=== PATIENT | male | born 1995 | race Caucasian/White ===

== ENCOUNTER 2020-12-04 11:29 | Emergency (ER) | payer BC, SELFPAY ==
[2020-12-04 11:30] VITALS: BP 145/89; PULSE 86; RESP 16; TEMP 37; O2SAT 98; BMI 25.0
--- NOTE | 2020-12-04 12:09 | HMH.EDGENADL ---
ED Disposition Clinical Impression: Cervical radiculopathy, Cervical disc disease Disposition: Home, Self-Care Condition on Discharge: Fair Instructions: DI for Cervical Radiculopathy, DI for Herniated Disc Additional Instructions: Prednisone as prescribed. Percocet for pain. You are being provided with a list of physicians available for follow-up of your condition. Please call a physician on this list to arrange a follow-up appointment as soon as possible. Additional instructions for NECK PAIN: See your physician as soon as possible for further evaluation. Return immediately if neck pain becomes intolerable, or if fever, numbness or weakness of your arms or legs, loss of control of your bowels or bladder. Additional instructions for CONTROLLED SUBSTANCES: You have been prescribed a medication that is a controlled substance. Controlled substances include pain medications known as opiates and sedative nerve medications known as benzodiazepines. Tramadol, fioricet, and gabapentin are also controlled substances. Some common opiates include: Codeine (such as Tylenol #3) Hydrocodone (Vicodin, Lortab, Lorcet, Pendergrass) Oxycodone (Percocet, Percodan, Oxycodone, Oxy IR) Some common benzodiazepines include: Diazepam (Valium) Lorazepam (Ativan) Alprazolam (Xanax) Clonazepam (Klonopin) Oxazepam (Serax) All of these controlled substances are highly addictive and frequently abused. Misuse can and frequently does lead to addiction as well as overdose and . Medication should be stored in a locked cabinet or other secure storage unit. Do not store the medication in a motor vehicle. Short term supplies, 3 days or less, are prescribed because of the highly addictive nature of the medication. Any of the controlled substance medication NOT taken should be disposed of properly and NOT SAVED. The recommended method of disposing of unused medications is: Place the medicines in a sealable plastic bag. If the medicine is a solid, crush it or add water to dissolve it. Add something undesirable (cat litter, coffee grounds, etc.) Dispose of sealed bag in household trash Do not flush or pour unused medicines down a sink or drain. Controlled substances should not be shared, given away or sold. Because of the addictive nature and frequent abuse, these medications are sometimes stolen. These medications should be kept in a safe place where they cannot be stolen. Do not keep them in your car or purse. Lost or stolen prescriptions for controlled substances WILL NOT BE REFILLED in this emergency department, regardless of whether a police report was filed. Prescriptions: Oxycodone HCl/Acetaminophen [Percocet 5/325mg tablet] 1 tab PO Q6HP PRN #15 tab PRN Reason: Moderate To Severe Pain Transmission Status: Received by [facility] #[id number] predniSONE [Prednisone 20mg Tab] 20 mg PO BID #10 tab Transmission Status: Pending to [facility] #[id number] Referrals: PCP,No [Primary Care Provider] - - Critical Care Critical Care Time: No Attestation: On , the high probability of a clinically significant, sudden or life threatening deterioration of the following system(s) required my full and direct attention, intervention and personal management. The time I documented below is in addition to time spent performing reported procedures but includes the following listed in this critical care notation. Medical Decision Making - Jared Inquiry Pt receiving controlled substance: Yes Jared was queried for this patient: Yes Risks and benefits of using a controlled substance: were discussed with pt by me Vital Signs: 12/04/20 11:30 12/04/20 13:00 Temperature 98.6 F Temperature Source Oral Pulse Rate [Radial] 86 Respiratory Rate 16 Blood Pressure [Right Arm] 145/89 H 126/65 Blood Pressure Mean [Right Arm] 107 85 Blood Pressure Source [Right Arm] Manual Cuff/ Palpation Automatic Cuff Blood Pressu
--- NOTE | 2020-12-04 12:18 | CT_ITS ---
PROCEDURE: CT CERVICAL SPINE W CON CLINICAL INDICATION: neck pain into right shoulder COMPARISON: CT CSWO CT CERVICAL SPINE W/O CONT from 05/26/2012 TECHNIQUE: Axial images obtained with sagittal and coronal reformats. All CT scans at the facility use one or more dose reduction, viz: automated exposure control, ma/kV adjustment per patient size (including targeted exams where dose is matched to indication, i.e. head), or iterative reconstruction technique. Axial spiral CT scanning performed of the cervical spine beginning at the base of the skull and continuing to the upper T-spine. 3-D multiplanar reconstruction with 3-D manipulation of volumetric data set in image rendering was completed by the radiologist and/or technologist with the supervision of the radiologist on independent workstation. FINDINGS: There is straightening of the cervical lordosis. This is not significantly changed from an older study of 05/26/2012. No fracture or dislocation. No lytic or blastic change. No enhancing paraspinal mass. There is slight decrease in the disc space at C5-C6. May be a right paracentral disc protrusion at C5-C6. Nonemergent MRI may confirm. Lung apices are clear. IMPRESSION: Minor decrease in the disc space at C5-C6 which may represent mild degenerative disc disease. Questionable right paracentral/foraminal disc protrusion at C5-C6 which may be confirmed with nonemergent MRI Dictated by: Bong Erazo MD 12/04/2020 13:13 Bong Erazo MD in [place] 12/04/2020 13:13
[2020-12-04 12:53] LABS: Basophils % 0.3 % (0.1-2.0); Eosinophils % 0.2 % (0.1-12.0); Hematocrit 43.1 % (42.0-52.0); Hemoglobin 14.3 g/dL (14.1-18.0); Lymphocytes # 1.1 K/mm3 (0.7-4.5); Lymphocytes % 16.8 % (10-50); Mean Corpuscular HGB Conc 33.1 g/dL (31.8-35.4); Mean Corpuscular Hemoglobin 29.9 pg (27.0-31.2); Mean Corpuscular Volume 90.2 fl (80-94); Mean Platelet Volume 8.1 fl (7.4-10.4); Monocytes # 0.3 K/mm3 (0.1-1.0); Monocytes % 4.3 % (1.7-9.3); Neutrophils # 4.9 K/mm3 (1.8-7.8); Neutrophils % 78.3 % (37.0-80.0); Platelet Count 314 K/mm3 (142-424); Red Blood Count 4.78 M/mm3 (4.60-6.20); Red Cell Distribution Width 12.5 % (11.5-17.5); White Blood Count 6.2 K/mm3 (4.8-10.8)
[2020-12-04 13:00] VITALS: BP 126/65; O2SAT 100
[2020-12-04 13:02] LABS: C-Reactive Protein 2.8 mg/L (0-4)
[2020-12-04 13:14] LABS: Erythrocyte Sedimentation Rate 13 mm/hr (0-15)
[2020-12-04 13:54] VITALS: BP 138/66; PULSE 92; RESP 18; O2SAT 100
[2020-12-04 14:10] VITALS: BP 138/66; PULSE 99; RESP 18; TEMP 37; O2SAT 100
[2020-12-04 14:12] VITALS: BP 123/65; PULSE 78; RESP 16; TEMP 36.6; O2SAT 98
== END 2020-12-04 14:14 | disposition home or self-care (01) ==
PROVIDERS: Emergency Provider Emergency Medicine
DX: M50.90 Cervical disc disorder, unspecified, unspecified cervical region (principal); M54.12 Radiculopathy, cervical region; F17.210 Nicotine dependence, cigarettes, uncomplicated
CPT/HCPCS: 72126; 85025; 85651; 86140; 96374; 96375; 99283; J2405; Q9967

== ENCOUNTER 2021-02-13 09:50 | Emergency (ER) | payer BC, SELFPAY ==
[2021-02-13 09:52] VITALS: BP 138/90; PULSE 91; RESP 16; TEMP 36.6; O2SAT 98; BMI 24.3
--- NOTE | 2021-02-13 09:56 | HMH.EDGENADL ---
ED Disposition Clinical Impression: Tenosynovitis Disposition: Xfer Short-Term Hosp Condition on Discharge: Good Referrals: Provider,Referral, [Primary Care Provider] - Time of Disposition: 11:27 - Critical Care Critical Care Time: No Attestation: On , the high probability of a clinically significant, sudden or life threatening deterioration of the following system(s) required my full and direct attention, intervention and personal management. The time I documented below is in addition to time spent performing reported procedures but includes the following listed in this critical care notation. Medical Decision Making - Medical Records Medical records reviewed: Yes: I reviewed the patient's medical records. - Jared Inquiry Pt receiving controlled substance: No Vital Signs: 02/13/21 09:52 Temperature 98 F Temperature Source Oral Pulse Rate [Radial] 91 H Respiratory Rate 16 Blood Pressure [Right Arm] 138/90 Blood Pressure Mean [Right Arm] 106 Blood Pressure Position [Right Arm] Sitting 02 Sat by Pulse Oximetry 98 Oxygen Delivery Method Room Air - Lab Data Lab Results 02/13/21 10:25: WBC 8.8, RBC 4.64, Hgb 14.1, Hct 40.5 L, MCV 87.1, MCH 30.3, MCHC 34.8, RDW 12.1, Plt Count 275, MPV 7.7, Neut % (Auto) 65.9, Lymph % (Auto) 23.5, [place] % (Auto) 6.1, Eos % (Auto) 3.7, Baso % (Auto) 0.7, Neut # (Auto) 5.8, Lymph # (Auto) 2.1, [place] # (Auto) 0.5, Eos # (Auto) 0.3, Baso # (Auto) 0.1 02/13/21 10:35: Sodium 138, Potassium 3.6, Chloride 100, Carbon Dioxide 28, Anion Gap 13.6, BUN 12, Creatinine 0.70, Estimated Creat Clear 199, Estimated GFR 140, Est GFR ( Amer) 169, Glucose 95, Calcium 9.2 02/13/21 10:35: Lactate 0.6 L Result diagrams: 02/13/21 10:25 02/13/21 10:35 Orders (Tests/Meds): ED MEDICATIONS Generic Name Dose Route Start Last Admin Trade Name Freq PRN Reason Stop Dose Admin Vancomycin HCl 1,750 mg/ 250 mls @ 125 mls/hr 02/13/21 10:15 02/13/21 11:10 Sodium Chloride IV 02/13/21 12:14 125 mls/hr ONCE ONE Administration Discontinued Medications Generic Name Dose Route Start Last Admin Trade Name Noa PRN Reason Stop Dose Admin Cefepime HCl 2 gm/ Sodium 100 mls @ 200 mls/hr 02/13/21 10:03 02/13/21 10:34 Chloride IV 02/13/21 10:32 Not Given ONCE ONE Protocol Ceftriaxone Sodium 2 gm/ 100 mls @ 200 mls/hr 02/13/21 10:06 02/13/21 10:10 Sodium Chloride IV 02/13/21 10:35 200 mls/hr ONCE ONE Administration Protocol Ketorolac Tromethamine 15 mg 02/13/21 10:06 02/13/21 10:11 Ketorolac 30mg/Ml Vial IV 02/13/21 10:07 15 mg ONCE ONE Administration ORDERS Category Date Time Status Hand XR left 2 views [XR hand LT 2V] Stat Exams 02/13/21 10:58 Taken Blood Culture Stat Micro 02/13/21 10:28 Ordered Medical Decision Narrative: 25yo M evaluated for pain and swelling about his left hand, centered over his left middle finger. Primary concern at this time is tenosynovitis. Patient is started on Rocephin and vancomycin. Case discussed with orthopedics at this facility, but they are uncomfortable keeping a hand case. Recommended transfer. [facility] has been contacted and agrees to see the patient to the emergency department. Dr. Fregoso is excepting. Patient CBC and CMP are unremarkable. Lactic acid is well within normal limits. Patient is adamant that he must go by POV. His mother is in route to pick him up. He is received his Rocephin and his vancomycin is currently running. Will administer medications as long as possible until his mother is here and will then transfer the patient. General Adult HPI - General Stated complaint: left hand and arm swollen Time Seen by Provider: 02/13/21 09:56 Mode of Arrival: Ambulatory - History of Present Illness HPI narrative: 25yo RHD M without significant past medical history reports to the emergency department secondary to pain and swelling in his left hand. Patient reports
--- NOTE | 2021-02-13 10:27 | PC.NURSE ---
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
[2021-02-13 10:39] LABS: Basophils # 0.1 K/mm3 (0-0.2); Basophils % 0.7 % (0.1-2.0); Eosinophils # 0.3 K/mm3 (0.0-0.4); Eosinophils % 3.7 % (0.1-12.0); Hematocrit 40.5 % (42.0-52.0); Hemoglobin 14.1 g/dL (14.1-18.0); Lymphocytes # 2.1 K/mm3 (0.7-4.5); Lymphocytes % 23.5 % (10-50); Mean Corpuscular HGB Conc 34.8 g/dL (31.8-35.4); Mean Corpuscular Hemoglobin 30.3 pg (27.0-31.2); Mean Corpuscular Volume 87.1 fl (80-94); Mean Platelet Volume 7.7 fl (7.4-10.4); Monocytes # 0.5 K/mm3 (0.1-1.0); Monocytes % 6.1 % (1.7-9.3); Neutrophils # 5.8 K/mm3 (1.8-7.8); Neutrophils % 65.9 % (37.0-80.0); Platelet Count 275 K/mm3 (142-424); Red Blood Count 4.64 M/mm3 (4.60-6.20); Red Cell Distribution Width 12.1 % (11.5-17.5); White Blood Count 8.8 K/mm3 (4.8-10.8)
[2021-02-13 10:45] LABS: Chloride 100 mmol/L (98-107); Sodium 138 mmol/L (136-145)
[2021-02-13 10:46] LABS: Potassium 3.6 mmoL/L (3.5-5.1)
[2021-02-13 10:48] LABS: Blood Urea Nitrogen 12 mg/dl (9-20); Creatinine Clearance Estimated 199 mL/min (50-200); Estimated Glomerular Filt Rate 140 ml/min (>60); GFR (African American) 169 ML/MIN (>60); Lactic Acid 0.6 mmol/L (0.7-2.1)
[2021-02-13 10:49] LABS: Anion Gap 13.6 mEq/L (5-15); Calcium 9.2 mg/dl (8.4-10.2); Carbon Dioxide 28 mmol/L (22.0-30.0); Glucose 95 mg/dl (74-100)
--- NOTE | 2021-02-13 10:57 | PC.NURSE ---
Dr Harden spoke with Dr Tejeda.
--- NOTE | 2021-02-13 10:58 | XR_ITS ---
PROCEDURE INFORMATION: Exam: XR Left Hand Exam date and time: 02/13/2021 10:58 AM Age: 25 years old Clinical indication: Pain; Hand; Left; Additional info: Swelling middle finger TECHNIQUE: Imaging protocol: XR Left hand. Views: 1 or 2 views. COMPARISON: CR HANDL3 HAND-LT-3 VIEWS 09/06/2016 10:26 AM FINDINGS: Bones/joints: Old fracture deformity of the 5th metacarpal. 3rd finger soft tissue swelling with extension into the dorsal hand. No radiopaque foreign bodies. No acute fracture or traumatic malalignment. IMPRESSION: No acute osseous abnormality. Third finger and dorsal hand soft tissue swelling.
--- NOTE | 2021-02-13 11:07 | PC.NURSE ---
placed call to [facility] for transfer
--- NOTE | 2021-02-13 11:16 | PC.NURSE ---
Dr Harden spoke with [facility] for transfer of PT.
[2021-02-13 11:30] VITALS: BP 152/80; PULSE 82; RESP 18; O2SAT 98
[2021-02-13 12:00] VITALS: BP 146/93; PULSE 76; RESP 18; O2SAT 98
--- NOTE | 2021-02-13 12:00 | PC.NURSE ---
pt resting c/o pain lt arm
--- NOTE | 2021-02-13 13:00 | PC.NURSE ---
mother at bedside. waiting antibiotic to infuse
--- NOTE | 2021-02-13 13:45 | PC.NURSE ---
report called to [facility]
[2021-02-13 13:48] VITALS: BP 142/72; PULSE 78; RESP 16; TEMP 36.6; O2SAT 97
== END 2021-02-13 13:52 | disposition short-term general hospital (02) ==
PROVIDERS: Emergency Provider Family Medicine
DX: M65.142 Other infective (teno)synovitis, left hand (principal); F17.210 Nicotine dependence, cigarettes, uncomplicated
CPT/HCPCS: 73120; 80048; 83605; 85025; 96365; 96366; 96375; 99283; J3370

== ENCOUNTER 2021-03-27 07:47 | Emergency (ER) | payer BC, SELFPAY ==
[2021-03-27 07:48] VITALS: BP 133/71; PULSE 110; RESP 16; O2SAT 98; BMI 25.0
--- NOTE | 2021-03-27 07:55 | CT_ITS ---
PROCEDURE INFORMATION: Exam: CT Head Without Contrast Exam date and time: 03/27/2021 7:55 AM Age: 25 years old Clinical indication: Altered mental status/memory loss; Additional info: AMS TECHNIQUE: Imaging protocol: Computed tomography of the head without contrast. Radiation optimization: All CT scans at this facility use at least one of these dose optimization techniques: automated exposure control; mA and/or kV adjustment per patient size (includes targeted exams where dose is matched to clinical indication); or iterative reconstruction. COMPARISON: CT CERVICAL SPINE W CON 12/04/2020 12:45 PM FINDINGS: Brain: Normal. No hemorrhage. Age appropriate white matter. No mass effect. No focal mass. The fields-white matter junction is intact. Cerebral ventricles: No ventriculomegaly. Paranasal sinuses: Visualized sinuses are unremarkable. No fluid levels. Mastoid air cells: Visualized mastoid air cells are well aerated. Bones/joints: Unremarkable. No acute fracture. Soft tissues: Unremarkable. IMPRESSION: Normal examination of brain. There is no acute intracranial abnormality. There is no structural abnormality.
[2021-03-27 08:00] VITALS: BP 133/82; PULSE 71; RESP 10; O2SAT 96
[2021-03-27 08:05] LABS: Basophils # 0.2 K/mm3 (0-0.2); Basophils % 1.6 % (0.1-2.0); Eosinophils # 0.4 K/mm3 (0.0-0.4); Eosinophils % 3.6 % (0.1-12.0); Hematocrit 46.4 % (42.0-52.0); Hemoglobin 15.4 g/dL (14.1-18.0); Lymphocytes # 2.7 K/mm3 (0.7-4.5); Lymphocytes % 25.7 % (10-50); Mean Corpuscular HGB Conc 33.2 g/dL (31.8-35.4); Mean Corpuscular Hemoglobin 29.7 pg (27.0-31.2); Mean Corpuscular Volume 89.4 fl (80-94); Mean Platelet Volume 7.3 fl (7.4-10.4); Monocytes # 0.6 K/mm3 (0.1-1.0); Monocytes % 5.5 % (1.7-9.3); Neutrophils # 6.7 K/mm3 (1.8-7.8); Neutrophils % 63.6 % (37.0-80.0); Platelet Count 303 K/mm3 (142-424); Red Blood Count 5.18 M/mm3 (4.60-6.20); Red Cell Distribution Width 12.7 % (11.5-17.5); White Blood Count 10.5 K/mm3 (4.8-10.8)
[2021-03-27 08:13] LABS: Alanine Aminotransferase 33 U/L (12-78); Albumin Level 4.8 g/dl (3.5-5.0); Albumin/Globulin Ratio 1.6 (1.1-1.8); Alkaline Phosphatase 86 U/L (38-126); Anion Gap 11.9 mEq/L (5-15); Aspartate Amino Transferase 40 U/L (17-59); Bilirubin,Total 0.6 mg/dl (0.2-1.3); Blood Urea Nitrogen 14 mg/dl (9-20); Calcium 9.3 mg/dl (8.4-10.2); Carbon Dioxide 34 mmol/L (22.0-30.0); Chloride 99 mmol/L (98-107); Creatine Kinase 384 U/L (55-170); Creatinine Clearance Estimated 152 mL/min (50-200); Estimated Glomerular Filt Rate 105 ml/min (>60); Ethyl Alcohol < 10 mg/dl (0-10); GFR (African American) 127 ML/MIN (>60); Glucose 101 mg/dl (74-100); Potassium 3.9 mmoL/L (3.5-5.1); Sodium 141 mmol/L (136-145); Total Protein,Serum 7.8 g/dl (6.3-8.2)
[2021-03-27 09:00] VITALS: BP 120/75; PULSE 83; O2SAT 96
--- NOTE | 2021-03-27 09:01 | ECG_ITS ---
APPROVED REPORT Exam: Resting ECG HR:75 bpm ECG Measurements Heart Rate 75 AXES TN 126 P 13 QRSd 88 QRS 76 QT 402 T 52 QTc 448 Conclusion Normal sinus rhythm Normal ECG Electronically signed by : Myron Masters, 03/28/2021 08:35:50
[2021-03-27 09:52] LABS: Microscopic, Urine URINE MICROSCOPIC (MICROSCOPIC)
[2021-03-27 09:54] LABS: Appearance,Urine CLEAR (Clear); Bilirubin,Urine Negative (Negative); Blood, Urine Negative (Negative); Color,Urine YELLOW (Yellow); Glucose,Urine (UA) Negative (Negative); Ketones,Urine Negative (Negative); Leukocyte Esterase,Urine Negative (Negative); Nitrate,Urine Negative (Negative); Protein,Urine Negative (Negative); Urobilinogen,Urine 0.2 EU/dl (0.2)
[2021-03-27 10:05] LABS: Benzodiazepines Screen,Urine Positive ng/ml (<200)
[2021-03-27 10:06] LABS: Amphetamine/Metha Screen,Urine Positive ng/ml (<1000)
[2021-03-27 10:07] LABS: Barbiturates Screen,Urine Negative ng/ml (<200); Cannabinoid Screen,Urine Positive ng/ml (<50)
[2021-03-27 10:08] LABS: Cocaine Screen,Urine Negative ng/ml (<300); Methadone Screen,Urine Negative ng/ml (<300)
[2021-03-27 10:09] LABS: Opiate Screen,Urine Positive ng/ml (<300)
[2021-03-27 10:10] LABS: Phencyclidine Screen,Urine Negative ng/ml (<25)
--- NOTE | 2021-03-27 10:13 | HMH.EDGENADL ---
ED Disposition Clinical Impression: Drug abuse Disposition: Home, Self-Care Condition on Discharge: Good Additional Instructions: Sent to the emergency room for any new symptoms. Follow-up with primary care physician. consult with your primary care physician regarding drug abuse Referrals: Provider,Referral, [Primary Care Provider] - - Critical Care Critical Care Time: No Attestation: On 03/27/21, the high probability of a clinically significant, sudden or life threatening deterioration of the following system(s) required my full and direct attention, intervention and personal management. The time I documented below is in addition to time spent performing reported procedures but includes the following listed in this critical care notation. Medical Decision Making - Medical Records MR Deyanira: She was observed in the emergency room with no signs of distress. Drug screen is positive for benzo. He smokes marijuana. His vital signs are stable and his neurological exam is normal. - Jared Inquiry Pt receiving controlled substance: No Jared was queried for this patient: No Vital Signs: 03/27/21 07:48 Pulse Rate [Radial] 110 H Respiratory Rate 16 Blood Pressure [Right Radial Artery] 133/71 Blood Pressure Mean [Right Radial Artery] 91 Blood Pressure Position [Right Radial Artery] Sitting 02 Sat by Pulse Oximetry 98 Oxygen Delivery Method Room Air - Lab Data Lab Results 03/27/21 07:51: WBC 10.5, RBC 5.18, Hgb 15.4, Hct 46.4, MCV 89.4, MCH 29.7, MCHC 33.2, RDW 12.7, Plt Count 303, MPV 7.3 L, Neut % (Auto) 63.6, Lymph % (Auto) 25.7, [place] % (Auto) 5.5, Eos % (Auto) 3.6, Baso % (Auto) 1.6, Neut # (Auto) 6.7, Lymph # (Auto) 2.7, [place] # (Auto) 0.6, Eos # (Auto) 0.4, Baso # (Auto) 0.2 03/27/21 07:51: Sodium 141, Potassium 3.9, Chloride 99, Carbon Dioxide 34 H, Anion Gap 11.9, BUN 14, Creatinine 0.90, Estimated Creat Clear 152, Estimated GFR 105, Est GFR ( Amer) 127, Glucose 101 H, Calcium 9.3, Total Bilirubin 0.6, AST 40, ALT 33, Alkaline Phosphatase 86, Total Creatine Kinase 384 H, Total Protein 7.8, Albumin 4.8, Globulin 3.0, Albumin/Globulin Ratio 1.6 03/27/21 07:51: Plasma/Serum Alcohol < 10 03/27/21 09:45: Urine Color Yellow, Urine Appearance Clear, Urine pH 7.0, Ur Specific [place] 1.010, Urine Protein Negative, Urine Glucose (UA) Negative, Urine Ketones Negative, Urine Blood Negative, Urine Nitrate Negative, Urine Bilirubin Negative, Urine Urobilinogen 0.2, Ur Leukocyte Esterase Negative, Urine RBC None, Urine WBC None, Ur Squamous Epith Cells None, Urine Bacteria None 03/27/21 09:45: Ur Barbituates Screen Negative, Ur Amphetamines Screen Positive H, U Benzodiazepines Scrn Positive H Result diagrams: 03/27/21 07:51 03/27/21 07:51 Orders (Tests/Meds): ED MEDICATIONS Discontinued Medications Generic Name Dose Route Start Last Admin Trade Name Freq PRN Reason Stop Dose Admin Sodium Chloride 1,000 mls @ 999 mls/hr 03/27/21 08:00 03/27/21 08:12 Sod Chlor 0.9% 1000ml Bag IV 03/27/21 09:00 999 mls/hr .Q1H1M SANTOS Administration ORDERS Category Date Time Status Drug Screen,Urine Stat Lab 03/27/21 09:45 Results General Adult HPI - General Chief complaint: Weakness Stated complaint: weakness Time Seen by Provider: 03/27/21 08:20 Mode of Arrival: EMS Limitations: No Limitations Description of Symptoms (Recalled from ER Triage Doc. by RN): to ed per squad pt found in yard unresponsive, police gave sternal rub and pt woke up. pt drowsey wakes up with verbal stimuli. pt unsure of how he ended up in yard. pt states he was walking to his brothers house at midnight. pt denies any drug use. admits to drinking alcohol lastnight. - History of Present Illness HPI narrative: Patient is a 25-year-old male with no past medical history he found lethargic and unresponsive by the police. He was given stimulation and he woke up. He denied any drug use except marijuana. He does not s
[2021-03-27 10:27] VITALS: BP 111/78; PULSE 83; RESP 11; TEMP 36.6; O2SAT 96
== END 2021-03-27 10:28 | disposition home or self-care (01) ==
PROVIDERS: Emergency Provider Internal Medicine
DX: F19.10 Other psychoactive substance abuse, uncomplicated (principal); F12.10 Cannabis abuse, uncomplicated; F10.10 Alcohol abuse, uncomplicated; F17.210 Nicotine dependence, cigarettes, uncomplicated
CPT/HCPCS: 70450; 80053; 80305; 81001; 82550; 85025; 93005; 96365; 99283

== ENCOUNTER 2021-09-20 14:24 | Emergency (ER) | payer BC, OTHER, SELFPAY ==
--- NOTE | 2021-09-20 14:35 | XR_ITS ---
PROCEDURE: XR KNEE LT 3V CLINICAL INDICATION: swelling, pain, redness COMPARISON: No exams were available for comparison FINDINGS: No fracture or dislocation. No lytic or blastic change. There is normal mineralization. The joint spaces are well-preserved. No significant degenerative/arthritic changes. No erosive changes evident. Other findings:Subcutaneous soft tissue swelling in the infrapatellar region. IMPRESSION: Soft tissue swelling otherwise negative Dictated by: Bong Erazo MD 09/20/2021 15:29 Bong Erazo MD in [place] 09/20/2021 15:29
--- NOTE | 2021-09-20 14:36 | HMH.EDLOEX ---
ED Disposition Clinical Impression: Cellulitis of knee, left Disposition: Home, Self-Care Condition on Discharge: Good Instructions: Cellulitis Additional Instructions: return for worse or any concerns Prescriptions: clindamycin HCL [Clindamycin HCl] 300 mg PO QID 10 Days #40 cap Transmission Status: Received by [facility] #[id number] Naproxen [Naproxen 500mg tab] 500 mg PO BID PRN 5 Days #15 tab PRN Reason: Moderate To Severe Pain Transmission Status: Received by [facility] #[id number] Referrals: Provider,Referral, [Primary Care Provider] - Forms: Work/School Release Time of Disposition: 14:58 - Critical Care Critical Care Time: No Attestation: On 09/20/21, the high probability of a clinically significant, sudden or life threatening deterioration of the following system(s) required my full and direct attention, intervention and personal management. The time I documented below is in addition to time spent performing reported procedures but includes the following listed in this critical care notation. Medical Decision Making - Medical Records Medical records reviewed: Yes: I reviewed the patient's medical records. - Jared Inquiry Pt receiving controlled substance: No Vital Signs: 09/20/21 14:41 09/20/21 15:25 Temperature 98.1 F 98 F Temperature Source Oral Oral Pulse Rate 78 Pulse Rate [Left Radial] 86 Respiratory Rate 16 16 Blood Pressure 125/74 Blood Pressure [Right Arm] 151/60 H Blood Pressure Mean [Right Arm] 90 Blood Pressure Position Sitting 02 Sat by Pulse Oximetry 99 Oxygen Delivery Method Room Air Room Air Lower Extremity Injury HPI - General Stated Complaint: lt knee swollen, possibly infected Time Seen by Provider: 09/20/21 14:36 Source of Information: Patient Limitations: No Limitations - History of Present Illness HPI Narrative: 3 days left knee swollen red, 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 Onset (ago): day(s) Type of Injury: unknown Severity: moderate - Related Data Previous Rx's Medication Instructions Recorded Oxycodone HCl/Acetaminophen 1 tab PO Q6HP PRN #15 tab 12/04/20 [Percocet 5/325mg tablet] Naproxen [Naproxen 500mg tab] 500 mg PO BID PRN 5 Days #15 tab 09/20/21 clindamycin HCL [Clindamycin HCl] 300 mg PO QID 10 Days #40 cap 09/20/21 Allergies Allergy/AdvReac Type Severity Reaction Status Date / Time No Known Allergies Allergy Unverified 11/28/17 17:09 [facility] History - Hepatitis A Screen Attestation statement:: This patient has been screened for Hepatitis A risk factors. Other Surgeries: Yes: No Previous Surgery - Social History Smoking Status: Light tobacco smoker Tobacco Type: cigarettes # Packs/Day (cigarettes): 1 Alcohol Intake: current Alcohol Intake Frequency:: a few times a month Substance Use Type: denies use Family Hx:: Diabetes ROS Obtained: Yes All systems reviewed & no additional complaints Physical Exam - General General appearance: alert, in no apparent distress - Respiratory Respiratory exam: Absent: respiratory distress, wheezes, stridor - Cardiovascular Cardiovascular exam: Present: normal rhythm, normal heart sounds. Absent: bradycardia - Expanded Lower Extremity Exam Left Comment: left localized anterior knee erthema extending to lateral proximal calf , small dark red papule at center over patella, mild general edema w/o pointing or fluctuance, vargas rom due to pain, able to bear weight, dry skin neg mckeon, clf soft, no cord nml left ankle/thigh/hip - Neurological Exam Neurological exam: Present: alert, oriented X3, CN II-XII intact - Skin Skin exam: Present: other (left anterior knee erytherma extending to proximal lateral calf)
[2021-09-20 14:41] VITALS: BP 151/60; PULSE 86; RESP 16; TEMP 36.7; O2SAT 99; BMI 24.3
[2021-09-20 15:25] VITALS: BP 125/74; PULSE 78; RESP 16; TEMP 36.6; O2SAT 98
== END 2021-09-20 15:26 | disposition home or self-care (01) ==
PROVIDERS: Emergency Provider Emergency Medicine
DX: L03.116 Cellulitis of left lower limb (principal); F17.210 Nicotine dependence, cigarettes, uncomplicated
CPT/HCPCS: 73562; 99282